=== PATIENT | female | born 2005 | race Two or more races ===

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

== ENCOUNTER 2025-01-16 21:21 | Emergency (ER) | payer MEDICAID, OTHER ==
[~2025-01-16] VITALS: Ht 154.9 cm; Wt 104.6 kg
[~2025-01-16 21:21] MED LIST: METF-370 PO
--- NOTE | 2025-01-16 21:59 | ED.PDOC ---
Psychiatric HPI Comments 19-year-old female who came to ER for suicidal attempt. Patient does have history of diabetes, anxiety, depression, bipolar disorder, and prior suicide attempt. At about 8:00 p.m., patient intentionally over 10 tablets of Vistaril 10mg and 6 tablets of Aripiprazole 2mg took attempt to harm herself. Denies any hallucinations. Chief Complaint: Suicidal Time Seen by MD: 21:58 Primary Care Provider: DENIES Reviewed Notes: Nurses Notes Information Source: Patient Mode of Arrival: Ambulatory Severity: Unable to Care for Self, Unable to Control Self Severity of Pain: Moderate Severity of Mental Status: Moderate Severity of Symptoms: Moderate Timing: Hours Duration: Since onset Presents with: Depression, Anxiety, Unclear Thinking, Suicidal Ideation Attempt: Ingestion Ingestion: Intentional, Multiple, Ingestion Observed, Drug(s) Ingested (Vistaril, Aripiprazole) Circumstance: Medical Clearance Stressors: Relationships History of: Depression, Anxiety, Bipolar, Suicidal Attempt Associated signs and symptoms: Depression, Hopeless, Anxiety Past Medical History PAST MEDICAL HISTORY: Anxiety, Depression, DM Past Medical History (Other): Bipolar disorder, suicide attempt Surgical History: Denies all surgeries ACOUSTICAL TILE PATTERNMAKER History: No Pertinent ACOUSTICAL TILE PATTERNMAKER History Family History Family History: Reviewed,noncontributory to illness Social History Smoker: Non-Smoker Alcohol: Denies ETOH Use Drugs: Denies Drug Use Lives In: Home Constitutional: denies: chills, diaphoresis, fatigue, fever, malaise, sweats, weakness, others EENTM: denies: blurred vision, double vision, ear bleeding, ear discharge, ear drainage, ear pain, ear ringing, eye pain, eye redness, hearing loss, mouth pain, mouth swelling, nasal discharge, nose bleeding, nose congestion, nose pain, photophobia, tearing, throat pain, throat swelling, voice changes, others Respiratory: denies: cough, hemoptysis, orthopnea, SOB at rest, shortness of breath, SOB with excertion, stridor, wheezing, others Cardiovascular: denies: chest pain, dizzy spells, diaphoresis, Dyspnea on exertion, edema, irregular heart beat, left arm pain, lightheadedness, palpitations, PND, syncope, others Gastrointestinal: denies: abdomen distended, abdominal pain, blood streaked bowels, constipated, diarrhea, dysphagia, difficulty swallowing, hematemesis, melena, nausea, poor appetite, poor fluid intake, rectal bleeding, rectal pain, vomiting, others Genitourinary: denies: abnormal vagina bleeding, burning, dyspareunia, dysuria, flank pain, frequency, hematuria, incontinence, pain, , vagina discharge, urgency, others Neurological: denies: dizziness, fainting, headache, left sided numbness, left sided weakness, numbness, paresthesia, pre-existing deficit, right sided nu mbness, right sided weakness, seizure, speech problems, tingling, tremors, weakness, others Musculoskeletal: denies: back pain, gout, joint pain, joint swelling, muscle pain, muscle stiffness, neck pain, others Integumetry: denies: bruises, change in color, change in hair/nails, dryness, laceration, lesions, lumps, rash, wounds, others Allergic/Immunocompromised: denies: Difficulty Healing, Frequent Infections, Hives, Itching, others Hematologic/Lymphatic: denies: anemia, blood clots, easy bleeding, easy bruising, swollen glands, others Endocrine: denies: excessive hunger, excessive sweating, excessive thirst, excessive urination, flushing, intolerance to cold, intolerance to heat, unexplained weight gain, unexplained weight loss, others Psychiatric: reports: anxiety, bipolar disorder, depression, suicidal; denies: hopeless, panic disorder, schizophrenia, sleepless, others Physical Exam General Appearance: No Apparent Distress, Normal HEENT: Normal ENT Inspection, Pharynx Normal, TMs Normal Neck: Full Range of Motion, Non-Tender, Normal, Normal Inspection Respiratory: Chest Non-Tender, Lungs Clear, No Accessory Muscle Use, No Respiratory Distress, Normal Breath Sounds Cardiovascular: No Edema, No JVD, No Murmur, No Gallop, Normal Peripheral Pulses, Regular Rate/Rhythm Breast Exam: Deferred Gastrointestinal: No Organomegaly, Non Tender, No Pulsatile Mass, Normal Bowel Sounds, Soft Genitalia: Deferred Pelvic: Deferred Rectal: Deferred Extremities: No calf tenderness, Normal capillary refill, Normal inspection, Normal range of motion, Non-tender, No pedal edema Musculoskeletal : Apperance: Normal Neurologic: Alert, herpetology teacher II-XII nml as Tested, No Motor Deficits, Normal Affect, Normal Mood, No Sensory Deficits Cerebellar Function: Normal Reflexes: Normal Skin: Dry, Normal Color, Warm Lymphatic: No Adenopathy Was a procedure done? Was a procedure done?: No Psych Differential Dx Psych. Differential Dx: Anxiety, Bipolar Disorder, Depression, Suicidal X-Ray, Labs, Meds, VS Vital Signs Date Time Temp Pulse Resp B/P (MAP) Pulse Ox O2 Delivery O2 Flow Rate FiO2 01/17/25 03:41 97.8 87 20 109/68 (82) 97 97.8 01/17/25 01:38 97.9 70 17 120/79 (93) 98 97.9 01/16/25 22:59 93 18 96 Room Air 01/16/25 22:59 97.6 93 18 107/71 (83) 96 97.6 01/16/25 22:50 87 01/16/25 21:21 98.6 92 16 138/92 98 98.6 Lab Test 01/17/25 02:25 01/16/25 21:56 Range/Units Sodium Level 140 # 134 L 136-145 mmol/L Potassium Level 3.8 4.0 3.5-5.1 mmol/L Chloride Level 103 100 98-107 mmol/L Carbon Dioxide Level 27 23 20-31 mmol/L Anion Gap 10 11 5-15 Blood Urea Nitrogen 11 10 9-23 mg/dL Creatinine 0.60 0.82 0.550-1.02 mg/dL Glomerular Filtration Rate Calc 133 106 >90 mL/min BUN/Creatinine Ratio 18.3 12.2 10.0-20.0 Serum Glucose 312 H 460 *H 74-106 mg/dL Calcium Level 9.2 9.8 8.7-10.4 mg/dL White Blood Count 10.2 4.4-10.8 10^3/uL Red Blood Count 4.76 4.0-5.20 10^6/uL Hemoglobin 14.3 12.2-16.2 g/dL Hematocrit 42.6 36.0-46.0 % Mean Corpuscular Volume 89.4 80.0-100.0 fL Mean Corpuscular Hemoglobin 30.1 28.0-32.0 pg Mean Corpuscular Hemoglobin Concent 33.6 32.0-36.0 g/dL Red Cell Distribution Width 14.0 11.8-14.3 % Platelet Count 277 140-450 10^3/uL Mean Platelet Volume 10.4 6.9-10.8 fL Neutrophils (%) (Auto) 66.4 37.0-80.0 % Lymphocytes (%) (Auto) 27.4 10.0-50.0 % Monocytes (%) (Auto) 4.7 0.0-12.0 % Eosinophils (%) (Auto) 0.8 0.0-7.0 % Basophils (%) (Auto) 0.7 0.0-2.0 % Neutrophils # (Auto) 6.8 1.6-8.6 10 ^3/uL Lymphocytes # (Auto) 2.8 0.4-5.4 10 ^3/uL Monocytes # (Auto) 0.5 0-1.3 10 ^3/uL Eosinophils # (Auto) 0.1 0-0.8 10 ^3/uL Basophils # (Auto) 0.1 0-0.2 10 ^3/uL Nucleated Red Blood Cells 0.0 % Magnesium Level 1.9 1.6-2.6 mg/dL Total Bilirubin 0.4 0.2-1.0 mg/dL Aspartate Amino Transferase (AST) 18 13-40 U/L Alanine Aminotransferase (ALT) 44 H 7-40 U/L Alkaline Phosphatase 70 46-116 U/L Total Protein 8.0 5.7-8.2 g/dL Albumin 4.5 3.2-4.8 g/dL Salicylates Level < 3.0 -30 mg/dL Acetaminophen Level < 2.0 L 10.0-20.0 UG/ML Plasma/Serum Blood Alcohol < 3.0 <10 mg/dL Current Medications Medications (Trade) Dose Ordered Sig/Karly Route Start Time Stop Time Status Last Admin Sodium Chloride 1,000 ml @ 1,000 mls/hr Q1H ONCE IV 01/17/25 00:45 01/17/25 01:44 DC 01/17/25 00:45 Insulin Human Regular (InsuLIN R) 4 units ONCE ONCE SC 01/17/25 00:45 01/17/25 00:46 DC 01/17/25 01:36 Time of 1ST Reevaluation: 21:54 Reevaluation 1ST: Unchanged Patient Education/Counseling: Diagnosis, Treatment Family Education/Counseling: No Family Present Departure 1 Departure Time of Disposition: 05:23 Impression: Primary Impression: Hyperglycemia due to diabetes mellitus Additional Impressions: Noncompliance Suicidal ideations Overdose [facility]: [facility] Condition: Fair Comments Poison control was contacted. They recommended observing the patient for at least 6 hours. Patient was observed in the emergency department for over 8 hours. Her blood sugar was elevated. We gave her IV fluids and insulin in her blood sugar improved. Otherwise she remained stable. After extended ED observation the patient is cleared medically for psych eval. We are awaiting psych evaluation for possible mental health placement. Critical Care Note Critical Care Time?: Yes (35 min-critical care time only) Critical care comment: Total critical care time: Approximately 36 minutes Due to a high probability of clinically significant, life threatening deterioration, the patient required my highest level of preparedness to intervene emergently and I personally spent this critical care time directly and personally managing the patient. This critical care time included obtaining a history; examining the patient; pulse oximetry; ordering and review of studies; arranging urgent treatment with development of a management plan; evaluation of patient's response to treatment; frequent reassessment; and, discussions with other providers. This critical care time was performed to assess and manage the high probability of imminent, life-threatening deterioration that could result in multi-organ failure. It was exclusive of separately billable procedures and treating other patients. Stability Stability form required: No Heart Score Heart Score: Heart Score Response (Comments) Value History N/A 0 EKG N/A 0 Age N/A 0 Risk Factors N/A 0 Troponin N/A 0 Total 0 I personally scribed for MONI MANZANO MD (JIM) on 01/16/25 at 21:59. Electronically submitted by Yonas Mendez ([email or web address]). I personally scribed for MONI MANZANO MD (JIM) on 01/16/25 at 22:02. Electronically submitted by Yonas Mendez ([email or web address]). I personally scribed for MONI MANZANO MD (JIM) on 01/16/25 at 22:29. Electronically submitted by Yonas Mendez ([email or web address]). MONI MANZANO MD Jan 16, 2025 21:59
[2025-01-16 22:05] LABS: Hematocrit 42.6 % (36.0-46.0); Hemoglobin 14.3 g/dL (12.2-16.2); Mean Corpuscular Hemoglobin 30.1 pg (28.0-32.0); Mean Corpuscular Volume 89.4 fL (80.0-100.0); Nucleated Red Blood Cells % 0.0 %
[2025-01-16 22:20] LABS: Albumin 4.5 g/dL (3.2-4.8); Alkaline Phosphatase 70 U/L (46-116); Anion Gap 11 (5-15); BUN/Creatinine Ratio 12.2 (10.0-20.0); Blood Urea Nitrogen 10 mg/dL (9-23); Calcium 9.8 mg/dL (8.7-10.4); Carbon Dioxide 23 mmol/L (20-31); Chloride 100 mmol/L (98-107); Magnesium 1.9 mg/dL (1.6-2.6); Potassium 4.0 mmol/L (3.5-5.1); Total Protein 8.0 g/dL (5.7-8.2)
[2025-01-16 22:21] LABS: Acetaminophen < 2.0 UG/ML (10.0-20.0); Bilirubin, Total 0.4 mg/dL (0.2-1.0); Salicylate < 3.0 mg/dL (-30)
[2025-01-16 22:23] LABS: Alanine Aminotransferase 44 U/L (7-40); Sodium 134 mmol/L (136-145)
[2025-01-16 22:25] LABS: Glucose 460 mg/dL (74-106)
[2025-01-17] MEDS: SODIUM CHLORIDE 0.9% 1,000 ML IV ONE (00:45)
[2025-01-17] MEDS: InsuLIN REG 1unit/0.01ml Soln (100units/ml) SC ONE (01:36)
[2025-01-17 02:47] LABS: Chloride 103 mmol/L (98-107); Potassium 3.8 mmol/L (3.5-5.1); Sodium 140 mmol/L (136-145)
[2025-01-17 02:48] LABS: Anion Gap 10 (5-15); Calcium 9.2 mg/dL (8.7-10.4); Carbon Dioxide 27 mmol/L (20-31)
[2025-01-17 02:53] LABS: BUN/Creatinine Ratio 18.3 (10.0-20.0); Blood Urea Nitrogen 11 mg/dL (9-23)
[2025-01-17 03:01] LABS: Glucose 312 mg/dL (74-106)
--- NOTE | 2025-01-17 07:19 | DVHINCON2 ---
Date of Service if different f: Jan 17, 2025 Time of Service: 07:01 Consult Consult Note PSYCHIATRY ED NEW CONSULT HPI: 19 yo pt with PPH of depression, bipolar, and anxiety presents to ED BIB family member for safety, psychiatric stabilization, and possible med initiation/optimization in setting of SA via intentional drug OD of 10-15 Hydroxyzine 10 mg tabs and ~5 Abilify 2 mg tabs. Psychiatry consulted for safety evaluation and recommendations in context of current presentation Pt reports over past several weeks experiencing worsening depressed mood, hopelessness/helplessness, negative thoughts, isolation/withdrawn, loss of interest, decreased energy, difficulty with focus, poor sleep, low self-worth, amotivation, some decline in self-care and anxiety symptoms to include excessive worry, rumination, intrusive thoughts, and irritability although some symptoms appear chronic in nature. Also intermittent worsening SI over past several days resulting in SA via intentional drug OD of rx'd 10-15 Hydroxyzine 10 mg tabs and ~5 Abilify 2 mg tabs. Identifies primary stress as "just life, I don't see point of living, i feel like a burden to everybody. i don't enjoy myself". Denies HI/AVH/paranoia/catatonic/perceptual disturbances Does have active outpt MH services established at this time (both psychiatry and therapy services). Currently rx'd Hydroxyzine 10 mg qd, Abilify 2 mg qd and Sertraline 50 mg qd, overall med compliant Denies ETOH, THC or IDU Single, no children, employed, lives with family, limited support system noted (immediate family) Unknown trauma hx. Denies FH of psych hospitalizations, suicide attempts, or completed suicides No acute medical/chronic pain issues although DM. No hx of seizures/TBI, or recent head injuries, NKDA Some hx of SI/SIB via cutting. One SA x 1 via OD in 2022. No prior psych hospitalizations/5150 holds. Denies history of violence, aggression, or assaultive behaviors. Denies any legal problems. Does not have access to firearms MSE: General Appearance/Behavior: Alert/awake; appears stated age, overweight, fair grooming/hygiene; calm/polite and cooperative, fair eye contact, no PMA/PMR Speech: coherent, rrr Thought Process: L/L/GD Thought Content: Abnormal Thoughts/Perceptions: denies dissociative symptoms Homicidality / Violent Thoughts: adamantly denies HI Suicidality: + SI Hallucinations: denies AVTH Delusions: denies paranoia, persecutory, or grandiose delusions Obsessions /compulsions: None Judgment/Insight: improving/fair Mood & Affect: "depressed" with mood-congruent, somewhat restricted/appropriate Orientation: oriented x 3 Attention/Concentration: appears intact Cognition: grossly intact Assessment: 19 yo pt with PPH of depression, bipolar, and anxiety presents to ED BIB family member for safety, psychiatric stabilization, and possible med initiation/optim ization in setting of SA via intentional drug OD of 10-15 Hydroxyzine 10 mg tabs and ~5 Abilify 2 mg tabs Pt s/p significant SA in setting of MDD Acute safety risk remains slightly elevated and is appropriate for inpatient psychiatric admission for further safety, psychiatric stabilization, and possible medication initiation/optimization. Pt willing to transfer to inpt psych facility voluntarily. Consider 5150 hold for DTS ONLY if needed for transfer or if no voluntary beds are available Primary Diagnosis: MDD, recurrent, moderate/severe, w/o PF Recommend VOL transfer to inpt psych facility for higher level of care 1:1 sitter is recommended Maintain suicide precautions Obtain collateral info from external sources if/when available Recommend HOLDING of current outpt med regimen in setting of OD Defer any psychotropic med initiation/changes to accepting inpt psych facility If patient later refuses voluntary hospitalization/ requests to be discharged from ED prior to transfer, please place pt on 5150 DTS hold Pt verbalized understanding and is receptive to above tx plan This case was discussed with ED nurse/provider and all parties in agreement with above tx plan Tiburcio Gallego MD Plan discussed with: Patient TIBURCIO GALLEGO MD Jan 17, 2025 07:19
[2025-01-17 18:54] VITALS: BP 136/72; PULSE 74; RESP 16; TEMP 98; O2SAT 99
--- NOTE | 2025-01-21 13:20 | ECG ---
[facility] Test Date: 2025-01-16 Test Time: 22:29:14 Pat Name: MARNIE SANDOVAL Department: ED Room: Gender: F Perinatal Specialist: : 2005 Requested By: MONI MANZANO Order Number: [id number] Reading MD: Pedro Villarreal Measurements Intervals [place] Rate: 87 P: 33 WI: 136 QRS: 57 QRSD: 92 T: 11 QT: 367 QTc: 442 Interpretive Statements Sinus rhythm Electronically Signed On 01-26-2025 18:51:20 PDT by Pedro Villarreal Please click the below link to view image of tracing.
== END 2025-01-17 20:50 | disposition short-term general hospital (02) ==
LOC: ER 21:21
DX: E11.65 Type 2 diabetes mellitus with hyperglycemia (principal); R45.851 Suicidal ideations; T50.902A Poisoning by unspecified drugs, medicaments and biological substances, intentional self-harm, initial encounter; F41.9 Anxiety disorder, unspecified; F31.9 Bipolar disorder, unspecified; Z91.51 Personal history of suicidal behavior; Z91.199 Patient's noncompliance with other medical treatment and regimen due to unspecified reason; Z79.899 Other long term (current) drug therapy; Y92.89 Other specified places as the place of occurrence of the external cause
CPT/HCPCS: 36415; 80048; 80053; 80320; 80329; 82947; 83735; 85025; 93005; 96360; 96361; 96372; 99285; J1815; J7030; 82962